=== PATIENT | female | born 1935 | race Caucasian/White ===

== ENCOUNTER 2016-07-25 11:43 | Inpatient (IN) ==
--- NOTE | 2016-07-24 21:43 | Discharge Summary ---
<Roxann Mills - Last Filed: 07/24/16 21:39> Date of Encounter: 07/24/16 - Discharge Diagnosis (1) Aseptic loosening of prosthetic knee Priority: Primary Status: Acute Qualifiers: Encounter type: initial encounter (2) Chronic pain Priority: Secondary Status: Chronic Comments: OARRS reviewed - Chronic pain medication - Takes Oxycodone 30mg QID - Last dose given 07/08/16 - Also takes Gabapentin 600mg TID. Allergies include Morphine and Fentanyl. Qualifiers: Chronic pain type: other chronic pain Qualified Code(s): G89.29 - Other chronic pain (3) History of [place] (myocardial infarction) Priority: Secondary Status: Chronic (4) Hyperlipidemia Priority: Secondary Status: Chronic Qualifiers: Hyperlipidemia type: unspecified Qualified Code(s): E78.5 - Hyperlipidemia , unspecified (5) CKD (chronic kidney disease) stage 3, GFR 30-59 ml/min Priority: Secondary Status: Chronic (6) Obesity Priority: Secondary Status: Chronic Qualifiers: Obesity type: unspecified obesity type Obesity severity: morbid Qualified Code(s): E66.01 - Morbid (severe) obesity due to excess calories - Discharge Medications Home Medications: Lisinopril [Prinivil] 20 mg PO DAILY #30 tablet 01/22/15 [Rx] Gabapentin 600 mg PO TID 06/09/16 [History] Omeprazole [PriLOSEC] 40 mg PO DAILY 06/09/16 [History] Aspirin Enteric Coated [Aspirin EC] 325 mg PO DAILY #21 tablet. 07/24/16 [Rx] Meloxicam [Mobic] 15 mg PO DAILY #30 tab 07/24/16 [Rx] OxyCODONE Immed Rel [Roxicodone 5 MG] 5 - 10 mg PO DAILY #21 tablet 07/24/16 [Rx ] Oxycodone HCl [Roxicodone 30 MG Immed Release] 30 mg PO Q6HR #120 07/24/16 [Rx] Carvedilol [Carvedilol] 6.25 mg PO DAILY 07/25/16 [History] Ergocalciferol (VITAMIN D2) [Vitamin D2] 50,000 unit PO SA 07/25/16 [History] Indapamide [Indapamide] 1.25 mg PO DAILY 07/25/16 [History] Oxycodone HCl [Roxicodone 30 MG Immed Release] 30 mg PO Q6HR 07/25/16 [History] Potassium Chloride 10 meq PO DAILY 07/25/16 [History] Temazepam [Temazepam] 30 mg PO HS 07/25/16 [History] Allergies/Adverse Reactions: Allergies fentanyl Adverse Reaction (Verified 07/25/16 13:49) Nausea morphine Adverse Reaction (Verified 07/25/16 13:49) Nausea Primary care physician: Haydee Kaminski CNP - Patient Status Disposition: Transfer Inpatient Rehab Fac Condition: Good - Discharge Instructions Follow Up With: Storm Jorgensen MD [Partnered Physician] - 08/23/16 9:50 am Roxann Mills, LUIZA [Physician Shot Hole Driller] - 08/05/16 9:30 am Harvey Craig EMPLOYMENT RECRUITER [Advanced Practice Nurse] - 08/05/16 10:15 am Haydee Kaminski CNP [Primary Care Provider] - 08/19/16 1:00 pm Sebastián Archuleta DO [Partnered Physician] - 08/24/16 1:15 pm - Hospital Course Hospital course: Ms. Russell Ramsay is a 81 year old female - Time Spent with Patient Total time spent providing and/or coordinating discharge services: <Storm Jorgensen - Last Filed: 07/28/16 08:24> Date of Encounter: 07/28/16 Time of Encounter: 08:23 - Discharge Diagnosis (1) Loosening of knee joint prosthesis Priority: Primary Status: Acute Qualifiers: Encounter type: subsequent encounter Qualified Code(s): T84.038D - Mechanical loosening of other internal prosthetic joint, subsequent encounter; Z96.659 - Presence of unspecified artificial knee joint (2) CKD (chronic kidney disease) stage 3, GFR 30-59 ml/min Priority: Secondary Status: Chronic (3) History of [place] (myocardial infarction) Priority: Secondary Status: Chronic (4) Obesity Priority: Secondary Status: Chronic Qualifiers: Obesity type: unspecified obesity type Obesity severity: morbid Qualified Code(s): E66.01 - Morbid (severe) obesity due to excess calories (5) Breast cancer Priority: Secondary Status: Chronic Qualifiers: Breast location: unspecified site of breast Patient sex: female Laterality: unspecified laterality Qualified Code(s): C50.919 - Malignant neoplasm of unspecified site of unspecified female breast (6) Hyperlipidemia Priority: Secondary Status: Chronic Qualifiers: Hyperlipidemia type: unspecified Qualified Code(s): E78.5 - Hyperlipidemia , unspecified (7) Acute blood loss anemia Priority: Primary Status: Acute Primary care physician: Haydee Kaminski CNP - Patient Status Functional capacity at discharge: uses cane/walker Overall status at discharge: patient is progressing back to baseline - Hospital Course Hospital course: Ms. Russell Ramsay is a 81 year old female The patient had an uneventful postoperative course. They received antibiotics and physical therapy and were discharged in stable condition. There will follow -up in the office in 2 weeks. Patient received 2 units packed red blood cells for acute blood loss anemia aspirin for the DVT prophylaxis - Time Spent with Patient Total time spent providing and/or coordinating discharge services:
--- NOTE | 2016-07-25 12:12 | History & Physical Report ---
Date of Encounter: 07/25/16 Time of Encounter: 12:12 24 Hour HP Update - Instructions Instructions: If the History and Physical is less than 30 days old and was completed prior to A.M. admission and or procedure and has NOT been updated on calendar day of procedure please complete this update prior to performing procedure. - Update Patient reports changes in Medical Condition: No Changes in assessment/condition: No Changes in Medication: No Preop tests/diagnostics Reviewed: Yes Surgery Remains Indicated: Yes Consent for Planned Operative Procedure(s) Verified: Yes - Pre-Operative Checklist Preoperative Checklist Indicated: No Prophylactic Antibiotic Ordered: Yes Is VTE Prophylaxis Indicated?: Yes
[2016-07-25] MEDS ORDERED: CeFAZolin Pre 2,000 MG/100 ML 2,000 MG/100 ML BAG IVPB ONE (12:24)
[2016-07-25] MEDS ORDERED: Ringers Solution, Lactated 1,000 ML IVC SCH ×2 (12:30→17:51)
[2016-07-25] MEDS ORDERED: Famotidine 20 MG/2 ML VIAL IVP ONE (12:42)
[2016-07-25] MEDS ORDERED: *HR* Labetalol 100 MG/20 ML MDV IVP PRN (12:42)
[2016-07-25] MEDS ORDERED: *HR* Promethazine 25 MG/ML VIAL IVP PRN (12:42)
--- NOTE | 2016-07-25 12:48 | Anesthesia Evaluation PreOp ---
Date of Encounter: 07/25/16 Time of Encounter: 12:46 - Past History Planned Operation: Revision R-total knee Cardiac History: CHF (exacerbation in 2014), HTN (maintained on Lisinopril, Carvedilol, Indapamide), Other (ECHO 06/09/16 - LVEF 65%, NO SWMA) Pulmonary History: Denies Any Significant HX HEAVY DUTY MECHANIC History: Denies Any Significant HX, Other (Chronic post-op knee pain maintained on Gabapentin) Other Medical History: Renal (Stage 3 CRI/GFR = 30 [ sees Dr. Warren]), GERD (maintained on Omeprazole), Other (Hx of Breast Ca) Anesthesia History: No Prior Anesthetic Complications, Past Anesthesia (B- TKRs , L-mastectomy, Hyster, Knee scope,) Alcohol Use: none Drug use: none Medications and Allergies Temazepam [Restoril] 30 mg PO HS 01/19/15 [History] Atorvastatin [Lipitor] 40 mg PO HS #30 tablet 01/22/15 [Rx] Lisinopril [Prinivil] 20 mg PO DAILY #30 tablet 01/22/15 [Rx] Gabapentin 600 mg PO TID 06/09/16 [History] Omeprazole [PriLOSEC] 40 mg PO DAILY 06/09/16 [History] Potassium Chloride [K-Tab ER] 10 meq PO DAILY 06/09/16 [History] Aspirin Enteric Coated [Aspirin EC] 325 mg PO DAILY #21 tablet. 07/24/16 [Rx] Meloxicam [Mobic] 15 mg PO DAILY #30 tab 07/24/16 [Rx] OxyCODONE Immed Rel [Roxicodone 5 MG] 5 - 10 mg PO DAILY #21 tablet 07/24/16 [Rx ] Oxycodone HCl [Roxicodone 30 MG Immed Release] 30 mg PO Q6HR #120 07/24/16 [Rx] Allergies No Known Allergies Allergy (Verified 06/09/16 10:08) - Meds/Allergy Pre-op Review Medications Reviewed: Yes Allergies Reviewed: Yes Beta Blockers on Current Med List: Yes (Carvedilol) Anesthesia Results - Labs Laboratory Tests 06/10/16 07/11/16 07/11/16 04:37 13:42 13:42 WBC 9.3 Hgb 12.2 Hct 37.6 Plt Count 273 PT 11.1 INR 1.0 APTT 29.9 Sodium Potassium Chloride Carbon Dioxide BUN Creatinine Est GFR (Non-Af Amer) Glucose 184 H 07/11/16 13:42 WBC Hgb Hct Plt Count PT INR APTT Sodium 139 Potassium 4.7 H Chloride 107 Carbon Dioxide 19 BUN 20 Creatinine 1.67 H Est GFR (Non-Af Amer) 30 L Glucose - Imaging EKG: image reviewed Anesthesia Exam O2 Sat Height 1.6 m Height 1.6 m Height 1.6 m Weight 83.007 kg Weight 83.007 kg Weight 83.007 kg O2 Sat by Pulse Oximetry 97 O2 Sat by Pulse Oximetry 97 Vital Signs Temp Pulse Resp BP Pulse Ox 98.6 F 63 18 127/61 97 07/25/16 12:08 07/25/16 12:08 07/25/16 12:08 07/25/16 12:08 07/25/16 12:08 Height: 5'3" Weight: 183# BMi = 32.4 NPO (# of Hours): MNoc - HEENT Pupil (Motor): Pupils equal, EOMI Mallampati: II - HEAVY DUTY MECHANIC LOC: Oriented HEAVY DUTY MECHANIC Motor: Normal RUE, Normal LUE, Normal RLE, Normal LLE, Normal Face HEAVY DUTY MECHANIC Sensory: Normal: RUE, LUE, RLE, LLE, Face - Cardiac Rhythm: Regular Murmur: None - Pulmonary Breath Sounds: bilateral Clear Respiratory Effort: Symmetrical Anesthesia Assess/Plan ASA Score: 3 (Htn, Chol, Obesity, Chronic Pain) Modified [place] Scale for Level of Consciousness: Cooperative, oriented, and tranquil Anesthetic Plan: General Monitoring Plan: Standard Monitors Recovery Plan: PACU Anes Supervising Prov Stmt: Pt seen/evaluated, R&B discussed, questions answered and consent obtained. Laith Hidalgo MD
[2016-07-25] MEDS ORDERED: *HR* Propofol 200 MG/20 ML VIAL IVP ONE (12:53)
[2016-07-25] MEDS ORDERED: *HR* FentaNYL (PF) 100 MCG/2 ML VIAL ONE (12:53)
[2016-07-25] MEDS ORDERED: Lidocaine -MPF 2% 2 ML VIAL ONE (12:54)
[2016-07-25] MEDS ORDERED: *HR* Midazolam HCl 2 MG/2 ML VIAL ONE (12:54)
[2016-07-25] MEDS ORDERED: Bupivacaine/Clonidine Syringe 1 EACH SYRINGE ONE (13:15)
[2016-07-25] MEDS ORDERED: ROPIVACAINE HCL/PF 0.5% 30 ML VIAL ONE (13:16)
--- NOTE | 2016-07-25 14:04 | Anesthesia Procedures ---
Date of Encounter: 07/25/16 Time of Encounter: 14:02 Procedures: Anesthesia - Nerve Block Procedure Date: 07/25/16 Time: 14:02 Allergies/Adv Reactions: Allergies fentanyl Adverse Reaction (Verified 07/25/16 13:49) Nausea morphine Adverse Reaction (Verified 07/25/16 13:49) Nausea Pre-op Diagnosis: oa right knee Surgical Procedure: right tka Checklist: Correct Patient Identifier, Correct procedure, History checked Correct side: Right Blood Thinner: No Monitor Applied: EKG, BP, Pulse Oximetry Supplemental Oxygen via Nasal Cannula (L/min): 2 Sedation: Versed (mg): 2 Indication: Post Op Analgesia Pre-op Neuro Deficits: No Block Type: Femoral, Other (iPACK) Catheter placed: No Sterile Technique: Yes Ultrasound used: Yes Anatomy identified: Yes Visual spread of Local: Yes Neuro Stimulation: Yes (femoral) Nerve Stimulator Range: 0.2 - 0.4 mA Blood on Needle Aspiration: No Smooth Injection of Local: Yes Pain with Injection of Local: No Prep: Chlorhexadine Needle: 22 x 50 mm Stimuplex, 21 x 100 mm Stimuplex Local: 0.25% Bupivicaine w/Clonidine 20 mcg/cc (iPACK 20cc), Ropivacaine (0.5% 30cc ropivicaine) Volume (cc): 50 Number of Attempts: 1 Complications: None/effective block Vitals: Vital Signs/O2 Sat, Most Current Temp Pulse Resp BP Pulse Ox 98.8 F 69 1 149/61 100 07/25/16 13:35 07/25/16 14:00 07/25/16 14:00 07/25/16 14:00 07/25/16 14:00 Comments: peripheral nerve block with ultrasound for postoperative pain relief per dr ascencio request
[2016-07-25] MEDS ORDERED: *HR* HYDROmorphone 2 MG/ML SYRINGE ONE (14:42)
[2016-07-25] MEDS ORDERED: Ondansetron 4 MG/2 ML VIAL ONE (14:44)
[2016-07-25] MEDS ORDERED: Dexamethasone 4 MG/ML VIAL ONE (14:44)
--- NOTE | 2016-07-25 15:24 | Orthopedic Operative Note ---
Date of procedure: 07/25/16 Pre-op diagnosis: Aseptic loosening right total knee Post-op diagnosis: same Procedure: Procedure: Right revision total knee Estimated blood loss: 500 mL Hardware: Biomet SS K 60 right femur 18 x 80 stem, 63 stem tibia, 18 x 40 stem. 14 constrained Melissa, 34 patella Exam Under anesthesia: Full extension and flexion to 90 degrees significant varus valgus instability Procedural Notes: Unstable total knee, aseptic loosening tibia and femur. Operative procedure: The patient was brought to the operating room and placed on the operating room table. After general anesthesia was administered the operative knee was examined. Findings were noted in the exam under anesthesia. The operative extremity was prepped and draped in sterile surgical fashion. The patient received IV antibiotics prior to skin incision. A standard midline incision was made centered over the patella through the old incision. The incision was made through the skin and subcutaneous tissue. A medial parapatellar tendon approach was performed. Care was taken to preserve tissue along the medial aspect of the patella. And to protect the patella tendon. The deep MCL was released off the medial tibia. The infra patella fat pad was excised. Fluid was encountered this was normal joint fluid, Cultures were obtained and gram . The knee was brought into flexion the poly-was removed. The interface between the patient's femoral component and distal femur were disrupted with a osteotome and oscillating saw. Femoral component was removed removed without significant bone loss the femoral component was loose. Attention was then turned to the tibial component. The same technique was used to remove the tibial component by disrupting the interface between the patient's tibial component and the patients proximal tibia. The tibial component was loose, was removed without significant bone loss. The tibia was sized to a 63 it was reamed up to a 18 x 40. Trial had good fit and fixation. The femur was sized to a 60, was reamed up to a 14 x 80. The finishing guide was seated and the box cut was made. The trial had good fit and fixation. Both trial components were seated and the 14 constrained Melissa was seated and secured. The knee had full flexion and full extension with no instability. The patella was everted, the patella was transected below the patella component. It was sized to a 34 the guide was seated the lug holes are drilled. Patella had excellent patella tracking. The trial components were removed. The knee sat for 2 minutes with a Betadine saline solution. It was irrigated out with 2 L of pulse irrigation. The components were assembled on the back table, the tibia cemented first followed by the femur. The 14 constrained liner was seated and secure. The knee was brought to full extension while the cement hardened. The patella was cemented and held in place with patellar holding clamp. After the cement hardened the knee was irrigated out again. The extensor mechanism was closed with a running #2 Fiberwire suture and a running #2 PDS suture. The deep tissue was irrigated and closed deep with #1 PDS suture superficially with 0 PDS suture. The skin was closed with skin evelyn. The patient was placed in a sterile dressing and postoperative brace. They were extubated and transferred to recovery room in stable condition. Anesthesia: YENNIFERA Surgeon: Storm Jorgensen Condition: stable Disposition: PACU
[2016-07-25] MEDS: *HR* HYDROmorphone (PF) 1 MG/ML SYRINGE IVP PRN ×6 (16:19→20:49)
[2016-07-25 16:45] LABS: Hematocrit 30.4 % (35.3-44.9); Hemoglobin 9.8 g/dL (11.5-15.4)
--- NOTE | 2016-07-25 17:04 | Anesthesia Evaluation Post Op ---
Date of Encounter: 07/25/16 Time of Encounter: 17:00 - Vital Signs Vital Signs: Vital Signs - Last 8 Hours Temp Pulse Resp BP Pulse Ox 07/25/16 16:55 97.2 F L 58 16 169/65 100 07/25/16 16:45 56 14 161/63 100 07/25/16 16:35 63 16 163/80 100 07/25/16 16:25 98.4 F 69 16 123/80 100 07/25/16 16:15 67 16 167/77 99 07/25/16 16:05 72 16 161/65 96 07/25/16 15:55 98.6 F 83 16 159/77 93 L 07/25/16 14:00 69 1 149/61 100 07/25/16 13:46 63 10 149/71 100 07/25/16 13:35 98.8 F 65 12 149/71 100 07/25/16 12:33 98.6 F 63 18 127/61 97 07/25/16 12:08 98.6 F 63 18 127/61 97 Intake and Output 07/25/16 07/25/16 07/25/16 07:59 15:59 23:59 Output Total 500 / 500 Balance -500 / -500 Output: Estimated Blood Loss 500 / 500 Other: Weight 83.007 kg Patient Weight 07/25/16 23:59 Weight 83.007 kg - Lungs Lungs: Clear Ascult./Percussion - Airway Airway: Non-obstructed - Cardiovascular Regular Rate, Baseline Rhythm - Mental Status Mental Status: Alert & Oriented, Answers Appropriately - Pain Pain Scale: 0 Pain Scale used: Numeric (1 - 10) - Nausea Vomiting Nausea Vomiting: Not Present - Hydration Hydration: Tolerates oral liquids - Discharge PostOp Status: Transfer Patient to floor
[2016-07-25] MEDS ORDERED: MOM Conc 10 ML UD.LIQ PO PRN (17:51)
[2016-07-25] MEDS ORDERED: Acetaminophen 325 MG TABLET PO PRN (17:51)
[2016-07-25] MEDS ORDERED: Ondansetron 4 MG/2 ML VIAL IVP PRN (17:51)
[2016-07-25] MEDS ORDERED: Sennosides 8.6 MG TABLET PO PRN (17:51)
[2016-07-25] MEDS ORDERED: Naloxone 0.4 MG/ML INJ IVP PRN (17:51)
[2016-07-25] MEDS ORDERED: Temazepam 15 MG CAPSULE PO PRN (17:51)
[2016-07-25] MEDS ORDERED: ceFAZolin 2,000 MG in D5% in Water 100 ML IVPB SCH (17:51)
[2016-07-25] MEDS ORDERED: *HR* Enoxaparin 30 MG/0.3 ML SYRINGE SQ SCH ×3 (18:00→18:15)
[2016-07-25] MEDS: Gabapentin 300 MG CAPSULE PO SCH ×2 (18:23→20:49)
[2016-07-25] MEDS: *HR* OxyCODONE Immed Rel 15 MG TABLET PO SCH (18:25)
[2016-07-25] MEDS: ceFAZolin 2,000 MG in D5% in Water 100 ML IVPB SCH (21:56)
[2016-07-25] MEDS: Temazepam 15 MG CAPSULE PO SCH (21:56)
[2016-07-26] MEDS: *HR* OxyCODONE Immed Rel 15 MG TABLET PO SCH ×5 (00:49→20:56)
[2016-07-26] MEDS: *HR* HYDROmorphone (PF) 1 MG/ML SYRINGE IVP PRN ×4 (03:52→22:22)
--- NOTE | 2016-07-26 06:20 | Orthopedics Progress Note ---
Date of Encounter: 07/26/16 Time of Encounter: 06:19 - Assessment and Plan (1) Loosening of knee joint prosthesis Current Visit: Yes Status: Acute Qualifiers: Encounter type: subsequent encounter Qualified Code(s): T84.038D - Mechanical loosening of other internal prosthetic joint, subsequent encounter; Z96.659 - Presence of unspecified artificial knee joint (2) CKD (chronic kidney disease) stage 3, GFR 30-59 ml/min Current Visit: Yes Status: Chronic (3) History of [place] (myocardial infarction) Current Visit: Yes Status: Chronic (4) Obesity Current Visit: Yes Status: Chronic Qualifiers: Obesity type: unspecified obesity type Obesity severity: morbid Qualified Code(s): E66.01 - Morbid (severe) obesity due to excess calories (5) Breast cancer Current Visit: No Status: Chronic Qualifiers: Breast location: unspecified site of breast Patient sex: female Laterality: unspecified laterality Qualified Code(s): C50.919 - Malignant neoplasm of unspecified site of unspecified female breast (6) Hyperlipidemia Current Visit: No Status: Chronic Qualifiers: Hyperlipidemia type: unspecified Qualified Code(s): E78.5 - Hyperlipidemia , unspecified Subjective Interval history: Patient was seen this morning doing well without complaints. Afebrile vital signs stable. Operative extremity: Neurovascularly intact Dressing clean dry and intact Calves nontender Assessment and plan: Continue with postoperative care HCT 30 Objective Vital signs: Vital Signs Temp Pulse Resp BP Pulse Ox 07/26/16 04:20 97.6 F 72 14 149/73 99 07/26/16 00:40 98 F 68 16 166/85 95 07/25/16 20:42 98.1 F 69 15 123/59 97 07/25/16 19:34 97.7 F 63 14 104/65 96 07/25/16 18:32 97.5 F L 61 16 143/67 95 07/25/16 17:59 97.9 F 62 12 143/83 95 07/25/16 17:33 97.7 F 53 12 147/74 97 07/25/16 17:05 97.2 F L 58 14 160/63 100 07/25/16 16:55 97.2 F L 58 16 169/65 100 07/25/16 16:45 56 14 161/63 100 07/25/16 16:35 63 16 163/80 100 07/25/16 16:25 98.4 F 69 16 123/80 100 07/25/16 16:15 67 16 167/77 99 07/25/16 16:05 72 16 161/65 96 07/25/16 15:55 98.6 F 83 16 159/77 93 L 07/25/16 14:00 69 1 149/61 100 07/25/16 13:46 63 10 149/71 100 07/25/16 13:35 98.8 F 65 12 149/71 100 07/25/16 12:33 98.6 F 63 18 127/61 97 07/25/16 12:08 98.6 F 63 18 127/61 97 Intake and Output 07/25/16 07/25/16 07/26/16 15:59 23:59 07:59 Intake Total 300 / 300 Output Total 500 / 500 1500 / 1500 250 / 250 Balance -500 / -500 -1200 / -1200 -250 / -250 Intake: IV Fluids 100 / 100 Ancef 2,000 MG In 100 / 100 Dextrose 5% 100 ML @ 200 mls/hr IVPB Q8H HARVEY Rx#: [id number] Oral 200 / 200 Output: Urine 1500 / 1500 250 / 250 Estimated Blood Loss 500 / 500 Other: # Voids 1 1 Weight 83.007 kg - Labs CBC & BMP: 07/25/16 16:13 Labs: Abnormal lab results Hgb 9.8 g/dL (11.5-15.4) L 07/25/16 16:13 Hct 30.4 % (35.3-44.9) L 07/25/16 16:13 - VTE Documentation of Mechanical Device: Venous foot pump, device Consult Discharge Plan - Plan Referrals: Haydee Kaminski, MOTORCYCLE RIDING INSTRUCTOR [Primary Care Provider] -
[2016-07-26] MEDS: ceFAZolin 2,000 MG in D5% in Water 100 ML IVPB SCH (06:43)
[2016-07-26] MEDS ORDERED: *HR* Enoxaparin 30 MG/0.3 ML SYRINGE SQ SCH (07:00)
[2016-07-26 07:05] LABS: Hematocrit 26.8 % (35.3-44.9); Hemoglobin 8.9 g/dL (11.5-15.4)
[2016-07-26 07:17] LABS: BUN/Creatinine Ratio 16 (6-26); Blood Urea Nitrogen 16 mg/dL (7-20); Calcium 8.8 mg/dL (8.6-10.8); Carbon Dioxide 20 mEq/L (19-29); Chloride 109 mEq/L (98-109); Glucose 105 mg/dL (70-99); Osmolality,Calculated 290 (280-300); Potassium 4.8 mEq/L (3.5-4.5); Sodium 139 mEq/L (136-145); eGFR For African Americans > 60 (> 60); eGFR For Non-African Americans 52 (> 60)
[2016-07-26] MEDS: Lisinopril 20 MG TABLET PO SCH (09:55)
[2016-07-26] MEDS: Gabapentin 300 MG CAPSULE PO SCH ×3 (09:55→20:55)
[2016-07-26] MEDS: *HR* Enoxaparin 30 MG/0.3 ML SYRINGE SQ SCH (20:56)
[2016-07-26] MEDS: Temazepam 15 MG CAPSULE PO SCH (23:24)
[2016-07-27] MEDS: *HR* OxyCODONE Immed Rel 15 MG TABLET PO SCH ×6 (00:36→22:20)
[2016-07-27] MEDS: *HR* HYDROmorphone (PF) 1 MG/ML SYRINGE IVP PRN ×5 (03:26→18:01)
[2016-07-27 06:32] LABS: Hematocrit 30.2 % (35.3-44.9)
--- NOTE | 2016-07-27 06:33 | Orthopedics Progress Note ---
Date of Encounter: 07/27/16 Time of Encounter: 06:33 - Assessment and Plan (1) Loosening of knee joint prosthesis Current Visit: Yes Status: Acute Qualifiers: Encounter type: subsequent encounter Qualified Code(s): T84.038D - Mechanical loosening of other internal prosthetic joint, subsequent encounter; Z96.659 - Presence of unspecified artificial knee joint (2) CKD (chronic kidney disease) stage 3, GFR 30-59 ml/min Current Visit: Yes Status: Chronic (3) History of [place] (myocardial infarction) Current Visit: Yes Status: Chronic (4) Obesity Current Visit: Yes Status: Chronic Qualifiers: Obesity type: unspecified obesity type Obesity severity: morbid Qualified Code(s): E66.01 - Morbid (severe) obesity due to excess calories (5) Breast cancer Current Visit: No Status: Chronic Qualifiers: Breast location: unspecified site of breast Patient sex: female Laterality: unspecified laterality Qualified Code(s): C50.919 - Malignant neoplasm of unspecified site of unspecified female breast (6) Hyperlipidemia Current Visit: No Status: Chronic Qualifiers: Hyperlipidemia type: unspecified Qualified Code(s): E78.5 - Hyperlipidemia , unspecified Subjective Interval history: Patient was seen this morning doing well without complaints. Afebrile vital signs stable. Operative extremity: Neurovascularly intact Dressing clean dry and intact Calves nontender Assessment and plan: Continue with postoperative care HCT 26.8 Objective Vital signs: Vital Signs Temp Pulse Resp BP Pulse Ox 07/27/16 04:49 99 F 89 16 167/89 94 L 07/27/16 01:10 100.4 F H 88 15 184/76 96 07/26/16 22:21 93 179/84 07/26/16 20:13 98.9 F 82 15 190/70 92 L 07/26/16 15:28 99.4 F 88 16 194/73 93 L 07/26/16 10:28 99.2 F 91 16 147/74 93 L 07/26/16 06:53 99.1 F 73 16 146/75 98 Intake and Output 07/26/16 07/26/16 07/27/16 15:59 23:59 07:59 Intake Total 360 / 360 Output Total 275 / 275 475 / 475 Balance 360 / 360 -275 / -275 -475 / -475 Intake: Oral 360 / 360 Output: Urine 275 / 275 475 / 475 Other: Meal Breakfast Percent of Meal Consumed 90% Stool Size Large # Voids 1 - Labs CBC & BMP: 07/26/16 06:39 07/26/16 06:39 Labs: Abnormal lab results Hgb 8.9 g/dL (11.5-15.4) L 07/26/16 06:39 Hct 26.8 % (35.3-44.9) L 07/26/16 06:39 Potassium 4.8 mEq/L (3.5-4.5) H 07/26/16 06:39 Est GFR (Non-Af Amer) 52 (> 60) L 07/26/16 06:39 Glucose 105 mg/dL (70-99) H 07/26/16 06:39 - VTE Documentation of Mechanical Device: Venous foot pump, device Consult Discharge Plan - Plan Referrals: Haydee Kaminski, DISTRIBUTOR ADVERTISING MATERIAL [Primary Care Provider] -
[2016-07-27 06:44] LABS: Calcium 9.4 mg/dL (8.6-10.8)
[2016-07-27 06:46] LABS: Potassium 3.5 mEq/L (3.5-4.5)
[2016-07-27] MEDS: Gabapentin 300 MG CAPSULE PO SCH ×3 (07:49→22:20)
[2016-07-27] MEDS: Lisinopril 20 MG TABLET PO SCH (07:50)
[2016-07-27] MEDS: Temazepam 15 MG CAPSULE PO SCH (22:20)
[2016-07-27] MEDS: *HR* Enoxaparin 30 MG/0.3 ML SYRINGE SQ SCH (22:20)
[2016-07-28] MEDS: *HR* OxyCODONE Immed Rel 15 MG TABLET PO SCH ×5 (00:26→16:06)
[2016-07-28] MEDS: *HR* HYDROmorphone (PF) 1 MG/ML SYRINGE IVP PRN ×2 (00:29→06:12)
[2016-07-28] MEDS: Gabapentin 300 MG CAPSULE PO SCH ×2 (08:12→16:06)
[2016-07-28] MEDS: Lisinopril 20 MG TABLET PO SCH (08:14)
--- NOTE | 2016-07-28 08:25 | Orthopedics Progress Note ---
Date of Encounter: 07/28/16 Time of Encounter: 08:25 - Assessment and Plan (1) Loosening of knee joint prosthesis Current Visit: Yes Status: Acute Qualifiers: Encounter type: subsequent encounter Qualified Code(s): T84.038D - Mechanical loosening of other internal prosthetic joint, subsequent encounter; Z96.659 - Presence of unspecified artificial knee joint (2) CKD (chronic kidney disease) stage 3, GFR 30-59 ml/min Current Visit: Yes Status: Chronic (3) History of [place] (myocardial infarction) Current Visit: Yes Status: Chronic (4) Obesity Current Visit: Yes Status: Chronic Qualifiers: Obesity type: unspecified obesity type Obesity severity: morbid Qualified Code(s): E66.01 - Morbid (severe) obesity due to excess calories (5) Breast cancer Current Visit: No Status: Chronic Qualifiers: Breast location: unspecified site of breast Patient sex: female Laterality: unspecified laterality Qualified Code(s): C50.919 - Malignant neoplasm of unspecified site of unspecified female breast (6) Hyperlipidemia Current Visit: No Status: Chronic Qualifiers: Hyperlipidemia type: unspecified Qualified Code(s): E78.5 - Hyperlipidemia , unspecified (7) Acute blood loss anemia Current Visit: Yes Status: Acute Subjective Interval history: Patient was seen this morning doing well without complaints. Afebrile vital signs stable. Operative extremity: Neurovascularly intact Dressing clean dry and intact Calves nontender Assessment and plan: Continue with postoperative care discharged today Objective Vital signs: Vital Signs Temp Pulse Resp BP Pulse Ox 07/28/16 06:36 98.5 F 91 16 152/76 96 07/28/16 05:13 98.7 F 88 16 159/79 95 07/28/16 00:44 99.0 F 92 16 134/71 94 L 07/27/16 21:01 98.9 F 76 16 180/60 100 07/27/16 14:49 98.7 F 90 16 143/86 95 07/27/16 10:09 98.4 F 96 18 154/78 96 Intake and Output 07/27/16 07/28/16 07/28/16 23:59 07:59 15:59 Other: # Voids 1 - Labs CBC & BMP: 07/27/16 06:17 07/27/16 06:17 Labs: Abnormal lab results Hgb 10.0 g/dL (11.5-15.4) L 07/27/16 06:17 Hct 30.2 % (35.3-44.9) L 07/27/16 06:17 Est GFR ( Amer) 57 (> 60) L 07/27/16 06:17 Est GFR (Non-Af Amer) 47 (> 60) L 07/27/16 06:17 Glucose 142 mg/dL (70-99) H 07/27/16 06:17 - VTE Documentation of Mechanical Device: Venous foot pump, device Consult Discharge Plan - Plan Referrals: Storm Jorgensen MD [Partnered Physician] - 08/23/16 9:50 am Roxann Mills, PAC [Physician Internal Auditor] - 08/05/16 9:30 am Harvey Craig, SODA MAKER [Advanced Practice Nurse] - 08/05/16 10:15 am Haydee Kaminski SODA MAKER [Primary Care Provider] - 08/19/16 1:00 pm Sebastián Archuleta DO [Partnered Physician] - 08/24/16 1:15 pm
[2016-07-28 09:50] LABS: Hematocrit 27.4 % (35.3-44.9); Hemoglobin 8.8 g/dL (11.5-15.4)
[2016-07-28 09:58] LABS: Calcium 8.9 mg/dL (8.6-10.8); Potassium 3.3 mEq/L (3.5-4.5)
[2016-07-28] MEDS ORDERED: 0.9 % Sodium Chloride 500 ML IVC ONE (11:37)
[2016-07-28 16:03] VITALS: BP 144/83
== END 2016-07-28 18:00 | DRG 467 ==
LOC: SAMDAY 11:43 → 3NENU 17:22
PROVIDERS: ADMIT Orthopaedic Surgery; ATTEND Orthopaedic Surgery

== ENCOUNTER 2018-04-25 08:13 | Inpatient (IN) ==
[2018-04-25] MEDS ORDERED: CeFAZolin Syr 2,000MG/20 ML 2,000 MG/20 ML SYRINGE IVPB ONE (08:34)
[2018-04-25] MEDS ORDERED: Ringers Solution, Lactated 1,000 ML IVC SCH ×2 (08:45→13:46)
[2018-04-25] MEDS ORDERED: *HR* Propofol 200 MG/20 ML VIAL IVP ONE ×2 (08:52→10:44)
[2018-04-25] MEDS ORDERED: *HR* FentaNYL (PF) 100 MCG/2 ML VIAL ONE (08:52)
[2018-04-25] MEDS ORDERED: Lidocaine -MPF 2% 2 ML VIAL ONE (08:52)
[2018-04-25] MEDS ORDERED: Ondansetron 4 MG/2 ML VIAL ONE (08:52)
[2018-04-25] MEDS ORDERED: Dexamethasone 4 MG/ML VIAL ONE (08:52)
--- NOTE | 2018-04-25 08:56 | Anesthesia Evaluation PreOp ---
Date of Encounter: 04/25/18 Time of Encounter: 08:50 - Past History Planned Operation: Revision Right total knee arthroplasty Cardiac History: HTN, Other (hx of takotsubo cardiomyopathy which is now resolved, EF is now 65%) Pulmonary History: Denies Any Significant HX COKEMAN History: Other (lumbar stenosis and disc dz at L3-4, and L4-5) Other Medical History: Renal (CKD stage III), GERD, Other (breast ca s/p L mastectomy) Anesthesia History: No Prior Anesthetic Complications, Past Anesthesia (R knee replacement and revision, L TKR, L mastectomy, hysterectomy) Alcohol Use: none Drug use: none Medications and Allergies Aspirin [Adult Aspirin] 81 mg PO DAILY 04/25/18 [History] Atorvastatin [Lipitor] 40 mg PO HS 04/25/18 [History] Carvedilol 12.5 mg PO DAILY 04/25/18 [History] Diclofenac Sodium [Voltaren] 2 gm TP BID 04/25/18 [History] Lisinopril [Zestril] 20 mg PO DAILY 04/25/18 [History] Omeprazole [PriLOSEC] 20 mg PO DAILY 04/25/18 [History] OxyCODONE Immed Rel [Roxicodone 15 MG] 15 mg PO Q6HR 04/25/18 [History] Pregabalin [Lyrica] 100 mg PO Q48H 04/25/18 [History] Allergy/AdvReac Type Severity Reaction Status Date / Time fentanyl AdvReac Nausea Verified 04/25/18 09:14 morphine AdvReac Nausea Verified 04/25/18 09:14 - Meds/Allergy Pre-op Review Medications Reviewed: Yes Allergies Reviewed: Yes Beta Blockers on Current Med List: Yes If Beta Blockers taken, Date/Time (Last Dose taken): 6am Anesthesia Results - Labs Laboratory Tests 04/24/18 04/24/18 04/24/18 15:52 15:52 15:52 WBC 8.3 Hgb 10.9 L Hct 34.9 L Plt Count 378 PT 12.2 H INR 1.1 APTT 29.9 Sodium 140 Potassium 4.3 Chloride 104 Carbon Dioxide 26 BUN 25 H Creatinine 1.15 - Imaging EKG: pending Additional studies: 05/30/18 Impressions: LVEF 65%. Normal LV chamber size, wall thickness and function. Mild left ventricular diastolic dysfunction. Normal right ventricular structure and function. Borderline mild pulmonary hypertension. Estimated RVSP is 35 mmHg. No significant valvular dysfunction. Compared to prior reports, LVEF has normalized. Anesthesia Exam O2 Sat Height 1.63 m Weight 86.183 kg O2 Sat by Pulse Oximetry 98 Vital Signs Temp Pulse Resp BP Pulse Ox 97.9 F 65 18 182/77 98 04/25/18 08:48 04/25/18 08:48 04/25/18 08:48 04/25/18 08:48 04/25/18 08:48 Weight: 86kg NPO (# of Hours): >8 - HEENT Pupil (Motor): Pupils equal, EOMI Mallampati: III Teeth: Edentulous Oral Opening: Greater than 3 - COKEMAN LOC: Oriented COKEMAN Motor: Normal RUE, Normal LUE, Normal RLE, Normal LLE, Normal Face COKEMAN Sensory: Normal: RUE, LUE, RLE, LLE, Face - Cardiac Rhythm: Regular - Pulmonary Breath Sounds: bilateral Clear Respiratory Effort: Symmetrical Anesthesia Assess/Plan ASA Score: 3 Level of consciousness: Cooperative Anesthetic Plan: General, Regional Nerve Block Regional Nerve Block Plan: Adductor canal (R), IPACK (R) Reason for No Neuroaxial/Regional Block: Other (hx of back issue with lumbar stenosis at L3-4 and L4-5) Monitoring Plan: Standard Monitors Recovery Plan: PACU
[2018-04-25] MEDS ORDERED: *HR* HYDROmorphone (PF) 1 MG/ML SYRINGE IVP PRN (08:58)
[2018-04-25] MEDS ORDERED: *HR* Promethazine 25 MG/ML VIAL IVP PRN (08:58)
[2018-04-25] MEDS ORDERED: *HR* OxyCODONE/APAP 5/325 TABLET PO PRN (08:58)
[2018-04-25] MEDS ORDERED: *HR* Labetalol 20 MG/4 ML SYRINGE IVP PRN (08:58)
--- NOTE | 2018-04-25 09:16 | History & Physical Report ---
Date of Encounter: 04/25/18 Time of Encounter: 09:16 24 Hour HP Update - Instructions Instructions: If the History and Physical is less than 30 days old and was completed prior to A.M. admission and or procedure and has NOT been updated on calendar day of procedure please complete this update prior to performing procedure. - Update Patient reports changes in Medical Condition: No Changes in examination, assessment, or condition: No Changes in Medication: No Preop tests/diagnostics Reviewed: Yes Surgery Remains Indicated: Yes Consent for Planned Operative Procedure(s) Verified: Yes - Pre-Operative Checklist Preoperative Checklist Indicated: No Prophylactic Antibiotic Ordered: Yes Is VTE Prophylaxis Indicated?: Yes
[2018-04-25] MEDS ORDERED: Bupivacaine/Clonidine Syringe 1 EACH SYRINGE ONE (09:26)
[2018-04-25] MEDS ORDERED: Acetaminophen IV 1,000 MG/100 ML INFUS..BTL ONE (09:28)
[2018-04-25] MEDS ORDERED: *HR* HYDROmorphone (PF) 1 MG/ML SYRINGE ONE (09:49)
[2018-04-25] MEDS ORDERED: Ethanol\\Acetic Acid\\Na Ace\\Ben 1,000 ML IRRIG.SOLN IR ONE (10:08)
--- NOTE | 2018-04-25 10:22 | Anesthesia Procedures ---
Date of Encounter: 04/25/18 Time of Encounter: 10:05 Procedures: Anesthesia - Nerve Block Procedure Date: 04/25/18 Time: 10:05 Allergies/Adv Reactions: Fentanyl, morphine Pre-op Diagnosis: Right knee pain Surgical Procedure: Right total knee arthroplasty Checklist: Correct Patient Identifier, Correct procedure, History checked Correct side: Right Blood Thinner: No Monitor Applied: EKG, BP, Pulse Oximetry Supplemental Oxygen via Nasal Cannula (L/min): 2 Indication: Post Op Analgesia Pre-op Neuro Deficits: No Block Type: Other (adductor canal/IPACK) Catheter placed: No Sterile Technique: Yes Ultrasound used: Yes Anatomy identified: Yes Visual spread of Local: Yes Neuro Stimulation: No Blood on Needle Aspiration: No Smooth Injection of Local: Yes Pain with Injection of Local: No Prep: Chlorhexadine Needle: 21 x 100 mm Stimuplex Local: 0.25% Bupivicaine w/Clonidine 20 mcg/cc (20ml IPACK), Ropivacaine (0.5% 30ml), Other (Decadron 8mg) Volume (cc): 50 Number of Attempts: 1 Complications: None/effective block Vitals: Vital Signs Temperature 97.9 F 04/25/18 08:48 Pulse Rate 65 04/25/18 08:48 Respiratory Rate 18 04/25/18 08:48 Blood Pressure 182/77 04/25/18 08:48 O2 Sat by Pulse Oximetry 98 04/25/18 08:48 Temperature 97.9 F 04/25/18 08:48 Pulse Rate 66 04/25/18 10:13 Respiratory Rate 16 04/25/18 10:13 Blood Pressure 199/76 04/25/18 10:13 O2 Sat by Pulse Oximetry 98 04/25/18 10:13
[2018-04-25] MEDS ORDERED: *HR* HYDROmorphone 2 MG/ML SYRINGE ONE (11:12)
--- NOTE | 2018-04-25 11:38 | Orthopedic Operative Note ---
Date of procedure: 04/25/18 Pre-op diagnosis: Loosening right total knee Post-op diagnosis: same (Aseptic) Procedure: Procedure: Right revision total knee Estimated blood loss: 500 Hardware: Metal and polyethylene replacement. Rosario TS femur: 3, 16 x 100 stem Tibia: 2 TS Melissa: 19 mm Exam Under anesthesia: Full extension flexion to 90 degrees. No erythema well- healed incision no instability Procedural Notes: Aseptic loosening of tibial femoral component Gram stain negative for bacteria fluid normal-appearing Operative procedure: The patient was brought to the operating room and placed on the operating room table. After general anesthesia was administered the operative knee was examined. Findings were noted in the exam under anesthesia. The operative extremity was prepped and draped in sterile surgical fashion. The patient received IV antibiotics prior to skin incision. A standard midline incision was made centered over the patella through the old incision. The incision was made through the skin and subcutaneous tissue. A medial parapatellar tendon approach was performed. Care was taken to preserve tissue along the medial aspect of the patella. And to protect the patella tendon. The deep MCL was released off the medial tibia. The infra patella fat pad was excised. Fluid was encountered this was normal joint fluid, Cultures were obtained and gram . The knee sat for 1 minute with antibacterial solution The knee was brought into flexion the poly-was removed. The interface between the patient's femoral component and distal femur were disrupted with a osteotome and oscillating saw. Femoral component was removed removed without significant bone loss and with minimal effort. Attention was then turned to the tibial component. The same technique was used to remove the tibial component by disrupting the interface between the patient's tibial component and the patients proximal tibia. The tibial component was loose, was removed without significant bone loss. The tibia was sized to a 2 prepared with The large she will follow-up fin cutter. Trial had good fit and fixation. The femur was sized to a 3, was reamed up to a 16 x 100 The finishing guide was seated and the box cut was made. The trial had good fit and fixation. Both trial components were seated and the 19 constrained Melissa was seated and secured. The knee had full flexion and full extension with no instability. Patella had excellent patella tracking. The trial components were removed. The knee sat for 2 minutes with a antibacterial solution. It was irrigated out with 2 L of pulse irrigation. The components were assembled on the back table, the tibia cemented first followed by the femur. The 19 constrained liner was seated and secure. The knee was brought to full extension while the cement hardened. After the cement hardened the knee was irrigated out again. The extensor mechanism was closed with a running #2 Fiberwire suture and a running #2 PDS suture. The deep tissue was irrigated and closed deep with #1 PDS suture superficially with 0 PDS suture. The skin was closed with skin evelyn. The patient was placed in a sterile dressing and postoperative brace. They were extubated and transferred to recovery room in stable condition. Anesthesia: GETA Surgeon: Storm Jorgensen Was there an assistant spa manager present: No Estimated blood loss (cc): 500 Condition: stable Disposition: PACU
[2018-04-25 12:59] LABS: Hematocrit 30.2 % (35.3-44.9); Hemoglobin 9.8 g/dL (11.5-15.4)
--- NOTE | 2018-04-25 13:19 | Anesthesia Evaluation Post Op ---
Date of Encounter: 04/25/18 Time of Encounter: 13:17 - Vital Signs Vital Signs: Vital Signs/O2 Sat, Most Current Temp Pulse Resp BP Pulse Ox 97.2 F L 61 16 156/65 94 04/25/18 13:07 04/25/18 13:07 04/25/18 13:07 04/25/18 13:07 04/25/18 13:07 - Lungs Lungs: Clear Ascult./Percussion - Airway Airway: Non-obstructed - Cardiovascular Regular Rate - Mental Status Mental Status: Alert & Oriented, Answers Appropriately - Pain Pain Scale used: Numeric (1 - 10) (tolerable) - Nausea Vomiting Nausea Vomiting: Not Present - Hydration Hydration: NPO - Discharge PostOp Status: Transfer Patient to floor
[2018-04-25] MEDS ORDERED: MOM Conc 10 ML UD.LIQ PO PRN (13:46)
[2018-04-25] MEDS ORDERED: Temazepam 15 MG CAPSULE PO PRN (13:46)
[2018-04-25] MEDS ORDERED: Ondansetron 4 MG/2 ML VIAL IVP PRN (13:46)
[2018-04-25] MEDS ORDERED: Sennosides 8.6 MG TABLET PO PRN (13:46)
[2018-04-25] MEDS ORDERED: Naloxone 0.4 MG/ML INJ IVP PRN (13:46)
[2018-04-25] MEDS: *HR* OxyCODONE Immed Rel 5 MG TABLET PO PRN ×2 (14:07→19:42)
--- NOTE | 2018-04-25 14:20 | Discharge Summary ---
- NOTES TO OUTPATIENT PROVIDER Notes to Outpatient Provider: Acute blood loss anemia*. Chronic pain Orders not resulted at time of discharge: Pending orders 04/25/18 09:30 US anesthesia pain block [US] Stat 04/25/18 11:01 Culture,Anaerobic [RM] Stat Culture,Wound [RM] Stat 04/25/18 11:38 Surgical Pathology [PTH] Routine 04/26/18 04:00 Basic Metabolic Panel AM 0400 Hemoglobin and Hematocrit [HEME] AM 0400 04/27/18 04:00 Basic Metabolic Panel AM 0400 Hemoglobin and Hematocrit [HEME] AM 0400 Date of Encounter: 04/28/18 Time of Encounter: 12:02 - Discharge Diagnosis (1) Aseptic loosening of prosthetic knee Priority: Primary Status: Acute Qualifiers: Encounter type: initial encounter Qualified Code(s): T84.038A - Mechanical loosening of other internal prosthetic joint, initial encounter; Z96.659 - Presence of unspecified artificial knee joint (2) Status post revision of total replacement of right knee Priority: Primary Status: Acute (3) Accelerated hypertension Priority: Secondary Status: Chronic (4) Acute blood loss anemia Priority: Secondary Status: Acute (5) CKD (chronic kidney disease) stage 3, GFR 30-59 ml/min Priority: Secondary Status: Chronic (6) Chronic pain Priority: Secondary Status: Chronic Comments: Continue chronic pain medication - Oxycodone 15mg q 6 hours, with Tramadol in between doses for breakthrough Qualifiers: Chronic pain type: other chronic pain Qualified Code(s): G89.29 - Other chronic pain (7) History of KS (myocardial infarction) Priority: Secondary Status: Chronic (8) Hyperlipidemia Priority: Secondary Status: Chronic Qualifiers: Hyperlipidemia type: unspecified Qualified Code(s): E78.5 - Hyperlipidemia, unspecified (9) Takotsubo cardiomyopathy Priority: Secondary Status: Chronic (10) Obesity Priority: Secondary Status: Chronic Qualifiers: Obesity type: due to excess calories Obesity classification: adult class 1 (BMI 30 - 34.9) Serious obesity comorbidity presence: without serious comorbidity Body mass index: BMI 32.0-32.9 Qualified Code(s): E66.09 - Other obesity due to excess calories; Z68.32 - Body mass index (BMI) 32.0-32.9, adult (11) C. difficile diarrhea Priority: Secondary Status: Acute Comments: Started on Vancomycin 125mg QID on 04/27 after positive test. (12) Acute blood loss anemia Priority: Secondary Status: Acute - Hospital Course Hospital course: Ms. Russell Ramsay is a 83 year old female, POD#. 3 - Plan for D/C 04/28 Cultures: gram stain negative, pre-rangel culture no growth s/p Right TKR Revision on 04/26 Chronic pain medication Oxycodone 15mg. Plan for Tramadol at D/C for breathrough pain Patient seen at bedside, without complaints. A&O x 3 Afebrile, vital signs stable. Vital Signs (72 hours) 04/27/18 10:10 04/27/18 10:25 04/27/18 11:16 Temperature 98.3 F 98.1 F 97.6 F Pulse Rate 83 86 81 Respiratory Rate 16 16 14 Blood Pressure 155/76 148/79 151/73 O2 Sat by Pulse Oximetry 96 96 04/27/18 14:10 04/27/18 15:41 04/27/18 17:10 Temperature 98.1 F 98.2 F 98.3 F Pulse Rate 84 78 74 Respiratory Rate 17 14 16 Blood Pressure 168/74 173/83 179/81 O2 Sat by Pulse Oximetry 97 97 97 04/27/18 17:25 04/27/18 19:27 04/27/18 20:31 Temperature 98.1 F 98.3 F 98.9 F Pulse Rate 74 80 83 Respiratory Rate 15 18 16 Blood Pressure 148/82 156/74 144/83 O2 Sat by Pulse Oximetry 98 96 96 04/27/18 21:39 04/27/18 23:12 04/28/18 00:08 Temperature 98.4 F Pulse Rate 69 68 Respiratory Rate 17 Blood Pressure 152/78 171/93 139/74 O2 Sat by Pulse Oximetry 94 04/28/18 03:18 04/28/18 07:27 Temperature 98.4 F 97.2 F L Pulse Rate 67 83 Respiratory Rate 17 17 Blood Pressure 157/73 150/82 O2 Sat by Pulse Oximetry 93 Labs reviewed. H/H - reviewed - Acute blood loss anemia 04/26 - type and cross and hold 2 units. 04/27 - Transfuse 2 units; 04/27 - +C.Diff test. STarted on Vancomycin PO per pharmacy recommendation. Continue through 05/07/1804/28 - H/H improved. Abnormal Labs 04/25/18 04/25/18 04/26/18 12:38 14:58 03:44 WBC Hgb 9.8 L 8.4 L Hct 30.2 L 26.1 L Chloride Est GFR ( Amer) Est GFR (Non-Af Amer) Glucose POC Glucose Calcium Stl C. diff Tox B Gene Crossmatch See Detail 04/26/18 04/27/18 04/27/18 03:44 03:13 06:09 WBC Hgb 7.3 L Hct 23.5 L Chloride Est GFR ( Amer) Est GFR (Non-Af Amer) 50 L Glucose 171 H POC Glucose Calcium Stl C. diff Tox B Gene Positive A Crossmatch 04/27/18 04/27/18 04/27/18 06:51 07:17 10:55 WBC 11.4 H Hgb Hct Chloride 110 H Est GFR ( Amer) Est GFR (Non-Af Amer) 49 L Glucose POC Glucose 103 H Calcium 8.3 L Stl C. diff Tox B Gene Crossmatch 04/28/18 04/28/18 07:55 08:00 WBC Hgb 11.4 L D Hct 35.0 L Chloride Est GFR ( Amer) 55 L Est GFR (Non-Af Amer) 45 L Glucose 113 H POC Glucose Calcium Stl C. diff Tox B Gene Crossmatch Pain control: adequate - Continue Chronic pain, printed for [facility] Participating in PT. All questions and concerns addressed. Educated on use of incentive spirometer. Encouraged ambulation and proper hydration. Patient educated on post-operative restrictions and post-operative care. Assessment and plan: Continue with postoperative care Discharge plan: ECF, discharge due to auth. CBC on Monday, monitor acute blood loss anemia. Continue iron supplement Monitor CBC - Time Spent with Patient Total time spent providing and/or coordinating discharge services: - Discharge Medications Prescriptions: Aspirin Enteric Coated [Aspirin EC] 325 mg PO BID #20 tablet. Tramadol HCl [Ultram] 50 mg PO TID PRN 7 Days #21 tab PRN Reason: Breakthrough Pain Home Medications: Aspirin Enteric Coated [Aspirin EC] 325 mg PO BID #20 tablet. 04/25/18 [Rx] Atorvastatin [Lipitor] 40 mg PO HS 04/25/18 [History] Carvedilol 12.5 mg PO DAILY 04/25/18 [History] Diclofenac Sodium [Voltaren] 2 gm TP BID 04/25/18 [History] Lisinopril [Zestril] 20 mg PO DAILY 04/25/18 [History] Omeprazole [PriLOSEC] 20 mg PO DAILY 04/25/18 [History] Pregabalin [Lyrica] 100 mg PO Q48H 04/25/18 [History] Tramadol HCl [Ultram] 50 mg PO TID PRN 7 Days #21 tab 04/25/18 [Rx] Docusate [Colace] 100 mg PO BID capsule 04/27/18 [Rx] Lidocaine Patch [Lidoderm 5% patch] 1 each TP DAILY adh..patch 04/27/18 [Rx] Vancomycin Oral Soln [Firvanq] 125 mg PO QID udc 04/27/18 [Rx] Allergies/Adverse Reactions: Allergy/AdvReac Type Severity Reaction Status Date / Time fentanyl AdvReac Nausea Verified 04/25/18 09:14 morphine AdvReac Nausea Verified 04/25/18 09:14 Date of admission: 04/25/18 13:59 Primary care physician: Haydee Kaminski CNP Consults: 04/25/18 13:46 Consult to Occupational Therapy [CONS] Routine Comment: Evaluate, develop and implement POC Reason for Consult: post knee surgery Does patient have active BEDREST order?: No Is patient medically & hemodynamically stable?: Yes Consult to Orthopedic Navigator [CONS] [CONS] Routine Consult to Pastoral Services [CONS] Routine Comment: pt request Consult to Physical Therapy [CONS] Routine Comment: Evaluate, develop and impliment POC Reason for Consult: post knee surgery Does patient have active BEDREST order?: No Is patient medically & hemodynamically stable?: Yes Consult to Manager Nursing [CONS] Routine Reason for SW Consult: post op joint replacement RT Post Op Consult [CONS] Routine Anticipated date of discharge: 04/28/18 Labs on day of discharge: Labs from last 24 hours 04/25/18 12:38 Hgb 9.8 L Hct 30.2 L - Impressions ITS Impressions Knee X-Ray 04/25/18 00:01 IMPRESSION: Satisfactory appearance status post revision total knee arthroplasty D/ / Devendra Barrett MD / Devendra Barrett MD Interpreting Provider: Devendra Barrett MD - Patient Status Disposition: Transfer Inpatient Rehab Fac Condition: Good Functional capacity at discharge: uses cane/walker Overall status at discharge: patient is progressing back to baseline - Discharge Instructions Follow Up With: Haydee Kaminski CNP [Primary Care Provider] - Additional Instructions: Discharge Instructions: Total Knee Replacement Please call [facility] ([phone]), your Primary Care Physician, or report to the Emergency Room if you have any of the following symptoms: Nausea, vomiting, fever greater that 101.5, swelling, chest pain, shortness of breath, increased pain/redness/drainage/odor for your incision site, numbness/tingling, or any other concerning symptoms. ACTIVITY:Weight-bearing as tolerated. You may progress off support (crutches or walker) as tolerated. Incentive Spirometer 10 times an hour. MEDICATIONS: Upon discharge resume your home medications. Take all the medications as prescribed. Take a stool softener if taking narcotic pain medications. Stool softeners are only effective if you drink enough fluids. Drink 6-8 glass of water or fluids a day, unless this is not allowed for another health problem. Despite using stool softeners, if you haven't had a bowel movement in 3 days, please switch to a gentle laxative. Gentle laxatives are sold over the counter. You should have a bowel movement within 24 hours, if not call the office. You will be discharged from the hospital with a prescription for pain medication. You are encouraged to decrease the use of narcotic pain medication as tolerated. Should you require a refill, please call the office. [facility] prescribes narcotic pain medication for only 4-6 weeks after surgery. If you require pain medication beyond this time period, you may be referred to your Primary Care Physician or to the Pain Clinic for further evaluation. Plan ahead for refills on pain medication as many narcotics either need to be picked up at the office or mailed. It is best to call 48-72 hours in advance of needing a prescription refill so you don't run out of medication. To help control the post-operative pain, you may take NSAIDs (Aleve,Advil, Motrin, Ibuprofen, Naprosyn) or Tylenol as prescribed on the bottle in addition to the pain medication. ANTICOAGULATION (blood thinners): Continue your Aspirin, Lovenox or Coumadin as prescribed to help prevent a blood clot in the leg or in the lungs. As long as your incision remains dry and you tolerate the NSAIDs (Aleve, Advil, Motrin, ibuprofen, naprosyn), it is OK to use the NSAIDS while you are taking your anticoagulation medication. Should your incision start to drain, stop the NSAID and contact our office. Common symptoms of blood clot in the legs include: localized pain, swelling, calf tenderness, redness or discoloration of the skin. Blood clot in the lung symptoms include: shortness of breath, rapid pulse, sweating, and chest pain that worsens with deep breathing, coughing up blood, lightheadedness, feelings of anxiety. If you experience any of these symptoms notify your physician immediately, go to the emergency room, or if having trouble breathing, call 911. WOUND CARE: Leave the dressing on for 7 to 10days. You may change the dressing if it becomes saturated greater than 50%. Do not get the dressing wet at anytime. Wash your hands with antibacterial soap, rinse and dry prior to any wound care. If you have evelyn the visiting nurse or rehab facility can remove the stapes 10-14 days after surgery and place steri-strips across the wound. Leave the steri-strips in place until they fall off on their won. You may let water from the shower run on top of the steri-strips. If you do not have a visiting nurse or rehab facility, you will need to return to the office at 10-14 days for the evelyn to be removed. If you have itching or redness around the dressing call the office. FOLLOW-UP: Please follow up with your surgeon in the orthopedic clinic in 4 weeks from the day of surgery. If you have evelyn that need to be removed, you will need to come back to the office in 10-14 days from the day of surgery. - Diet and Activity Activity: as per physical therapy
[2018-04-25] MEDS: traMADol 50 MG TABLET PO PRN (16:10)
[2018-04-25] MEDS: *HR* Enoxaparin 30 MG/0.3 ML SYRINGE SQ SCH (17:39)
[2018-04-25] MEDS: Pregabalin 50 MG CAPSULE PO SCH (17:39)
[2018-04-25] MEDS ORDERED: *HR* Enoxaparin 30 MG/0.3 ML SYRINGE SQ SCH (18:00)
[2018-04-26] MEDS: *HR* OxyCODONE Immed Rel 5 MG TABLET PO PRN ×4 (00:05→20:55)
[2018-04-26] MEDS: *HR* OxyCODONE/APAP 5/325 TABLET PO PRN ×5 (03:42→23:13)
[2018-04-26 04:12] LABS: Hematocrit 26.1 % (35.3-44.9); Hemoglobin 8.4 g/dL (11.5-15.4)
[2018-04-26 04:31] LABS: BUN/Creatinine Ratio 19 (6-26); Blood Urea Nitrogen 20 mg/dL (8-23); Calcium 8.7 mg/dL (8.6-10.3); Carbon Dioxide 23 mEq/L (23-29); Chloride 106 mEq/L (98-107); Glucose 171 mg/dL (70-105); Osmolality,Calculated 289 (280-300); Potassium 4.3 mEq/L (3.5-5.1); Sodium 136 mEq/L (136-145); eGFR For Non-African Americans 50 (> 60)
[2018-04-26] MEDS: *HR* Enoxaparin 30 MG/0.3 ML SYRINGE SQ SCH ×2 (05:41→18:11)
--- NOTE | 2018-04-26 08:01 | Orthopedics Progress Note ---
Date of Encounter: 04/26/18 Time of Encounter: 08:00 Subjective Interval history: Patient was seen this morning doing well without complaints. Afebrile vital signs stable. Operative extremity: Neurovascularly intact Dressing clean dry and intact Calves nontender Assessment and plan: Continue with postoperative care Hemoglobin 8.4 Gram stain negative for bacteria Objective Vital signs: Vital Signs Temp Pulse Resp BP Pulse Ox 04/26/18 06:44 98.3 F 71 18 156/81 96 04/26/18 04:16 98.0 F 76 16 162/78 95 04/25/18 23:10 97.9 F 80 17 156/62 94 04/25/18 18:59 97.4 F L 78 16 182/81 96 04/25/18 16:31 97.8 F 76 18 155/84 100 04/25/18 14:50 97.6 F 67 15 146/81 99 04/25/18 14:20 97.5 F L 64 16 164/81 100 04/25/18 13:46 97.6 F 59 16 178/80 100 04/25/18 13:17 97.2 F L 67 15 157/72 96 04/25/18 13:07 97.2 F L 61 16 156/65 94 04/25/18 12:57 66 17 172/75 96 04/25/18 12:47 69 21 137/62 92 04/25/18 12:36 97.0 F L 69 17 142/77 94 04/25/18 12:26 72 16 163/74 93 04/25/18 12:16 73 12 157/72 93 04/25/18 12:06 97.0 F L 76 14 116/44 93 04/25/18 10:28 68 14 202/79 98 04/25/18 10:13 66 16 199/76 98 04/25/18 09:57 66 14 184/72 98 04/25/18 08:48 97.9 F 65 18 182/77 98 Intake and Output 04/25/18 04/26/18 04/26/18 23:59 07:59 15:59 Intake Total 100 / 100 200 / 200 Output Total 400 / 400 200 / 200 Balance -300 / -300 0 / 0 Intake: IV Fluids 100 / 100 Ancef 2,000 MG In 0.9 % Sodium 100 / 100 Chloride 100 ML @ 200 mls/hr IVPB Q8HR HARVEY Rx#:[id number] Oral 200 / 200 Output: Urine 400 / 400 200 / 200 Other: # Voids 1 Weight 86.184 kg Patient Weight 04/26/18 23:59 Weight 86.184 kg - Labs CBC & BMP: 04/26/18 03:44 04/26/18 03:44 Labs: Abnormal lab results Hgb 8.4 g/dL (11.5-15.4) L 04/26/18 03:44 Hct 26.1 % (35.3-44.9) L 04/26/18 03:44 Est GFR (Non-Af Amer) 50 (> 60) L 04/26/18 03:44 Glucose 171 mg/dL (70-105) H 04/26/18 03:44 Consult Discharge Plan - Plan Referrals: Haydee Kaminski, CLINICAL PHLEBOTOMIST [Primary Care Provider] - Prescriptions: Aspirin Enteric Coated [Aspirin EC] 325 mg PO BID #20 tablet. Tramadol HCl [Ultram] 50 mg PO TID PRN 7 Days #21 tab PRN Reason: Breakthrough Pain
[2018-04-26] MEDS: Lisinopril 20 MG TABLET PO SCH (08:31)
[2018-04-26] MEDS: Aspirin Enteric Coated 81 MG Tablet PO SCH (08:31)
--- NOTE | 2018-04-26 12:20 | Event Note ---
Date of Encounter: 04/26/18 Time of Encounter: 12:19 PCR - POD#. 1 Cultures: s/p Right TKR Revision on 04/26 Chronic pain medication Oxycodone 15mg. Plan for Tramadol at D/C for breathrough pain Patient seen at bedside, without complaints. A&O x 3 Afebrile, vital signs stable. Labs reviewed. H/H - stable, asymptomatic - Acute blood loss anemia 04/26 - type and cross and hold 2 units. Pain control: adequate Participating in PT. All questions and concerns addressed. Educated on use of incentive spirometer. Encouraged ambulation and proper hydration. Patient educated on post-operative restrictions and post-operative care. Assessment and plan: Continue with postoperative care Discharge plan: ECF, discharge due to auth. Short CBC 04/26/18 04/25/18 Range/Units 03:44 12:38 Hgb 8.4 L 9.8 L (11.5-15.4) g/dL Hct 26.1 L 30.2 L (35.3-44.9) % BMP 04/26/18 Range/Units 03:44 Sodium 136 (136-145) mEq/L Potassium 4.3 (3.5-5.1) mEq/L Chloride 106 (98-107) mEq/L Carbon Dioxide 23 (23-29) mEq/L BUN 20 (8-23) mg/dL Creatinine 1.05 (0.60-1.20) mg/dL Glucose 171 H (70-105) mg/dL Calcium 8.7 (8.6-10.3) mg/dL Vital Signs Temp Pulse Resp BP Pulse Ox 04/26/18 10:30 98.5 F 92 16 151/92 96 04/26/18 06:44 98.3 F 71 18 156/81 96 04/26/18 04:16 98.0 F 76 16 162/78 95 04/25/18 23:10 97.9 F 80 17 156/62 94 04/25/18 18:59 97.4 F L 78 16 182/81 96 04/25/18 16:31 97.8 F 76 18 155/84 100 04/25/18 14:50 97.6 F 67 15 146/81 99 04/25/18 14:20 97.5 F L 64 16 164/81 100 04/25/18 13:46 97.6 F 59 16 178/80 100 04/25/18 13:17 97.2 F L 67 15 157/72 96 04/25/18 13:07 97.2 F L 61 16 156/65 94 04/25/18 12:57 66 17 172/75 96 04/25/18 12:47 69 21 137/62 92 04/25/18 12:36 97.0 F L 69 17 142/77 94 04/25/18 12:26 72 16 163/74 93 Intake and Output 04/25/18 04/26/18 04/26/18 23:59 07:59 15:59 Intake Total 100 / 100 200 / 200 Output Total 400 / 400 200 / 200 Balance -300 / -300 0 / 0 Intake: IV Fluids 100 / 100 Ancef 2,000 MG In 0.9 % Sodium 100 / 100 Chloride 100 ML @ 200 mls/hr IVPB Q8HR [facility] Rx#:[id number] Oral 200 / 200 Output: Urine 400 / 400 200 / 200 Other: Stool Size Large Stool Consistency formed Stool Characteristics Normal for Patient Stool Color Brown # Voids 1 Weight 86.184 kg Patient Weight 04/26/18 23:59 Weight 86.184 kg
--- NOTE | 2018-04-26 12:22 | Physician Discharge Referral ---
ExtendedCare Referral Info Transfer To: F Provider in Charge after Transfer: PCP Institutional Level of Care: Skilled - Diagnosis (1) Status post revision of total replacement of right knee Priority: Primary Status: Acute (2) Loosening of knee joint prosthesis Priority: Primary Status: Acute (3) Accelerated essential hypertension Priority: Secondary Status: Chronic (4) CKD (chronic kidney disease) stage 3, GFR 30-59 ml/min Priority: Secondary Status: Chronic (5) Chronic pain Priority: Secondary Status: Chronic (6) High risk medication use Priority: Secondary Status: Chronic (7) History of SD (myocardial infarction) Priority: Secondary Status: Chronic (8) Hyperlipidemia Priority: Secondary Status: Chronic (9) Obesity Priority: Secondary Status: Deleted (10) Takotsubo cardiomyopathy Priority: Secondary Status: Chronic Expected Duration of Placement: < 30 days Prognosis: Good Aware of Diagnosis: Patient Aware of Prognosis: Patient - Transfer Medications Prescriptions: OxyCODONE Immed Rel [Roxicodone 15 MG] 15 mg PO Q6HR 2 Days #8 tablet Aspirin Enteric Coated [Aspirin EC] 325 mg PO BID #20 tablet. Tramadol HCl [Ultram] 50 mg PO TID PRN 7 Days #21 tab PRN Reason: Breakthrough Pain Home Medications: Aspirin Enteric Coated [Aspirin EC] 325 mg PO BID #20 tablet. 04/25/18 [Rx] Atorvastatin [Lipitor] 40 mg PO HS 04/25/18 [History] Carvedilol 12.5 mg PO DAILY 04/25/18 [History] Diclofenac Sodium [Voltaren] 2 gm TP BID 04/25/18 [History] Lisinopril [Zestril] 20 mg PO DAILY 04/25/18 [History] Omeprazole [PriLOSEC] 20 mg PO DAILY 04/25/18 [History] Pregabalin [Lyrica] 100 mg PO Q48H 04/25/18 [History] Tramadol HCl [Ultram] 50 mg PO TID PRN 7 Days #21 tab 04/25/18 [Rx] Docusate [Colace] 100 mg PO BID capsule 04/27/18 [Rx] Lidocaine Patch [Lidoderm 5% patch] 1 each TP DAILY adh..patch 04/27/18 [Rx] OxyCODONE Immed Rel [Roxicodone 15 MG] 15 mg PO Q6HR 2 Days #8 tablet 04/27/18 [Rx] Vancomycin Oral Soln [Firvanq] 125 mg PO QID udc 04/27/18 [Rx] Allergies/Adverse Reactions: Allergy/AdvReac Type Severity Reaction Status Date / Time fentanyl AdvReac Nausea Verified 04/25/18 09:14 morphine AdvReac Nausea Verified 04/25/18 09:14 - Respiratory Orders None Smoking Cessation: Smoking cessation has been advised. For more information, call the [place] Tobacco Quit Line at 8-920-YTJM-NOW. - Lab Orders Lab Orders: CBC - Advance Directives Code Status: Full Code - Mobility Orders Chair, Ambulate - Rehabiliation Orders Rehab Potential: Good Rehab Orders: ROM Exercises, Evaluation for Physical Therapy, Evaluation for Occupational Therapy Other: Opsite dressing, leave intact until first post-operative visit. If dressing becomes >50% saturated, contact office, remove dressing and place appropriate dressing in its place. Do not allow for dressing to get wet. Zipline in place, plan to remove at post-operative day #14-16. Total Joint Precautions x 6 weeks Apply cold therapy wrap 3-6x/day for 20 minutes at a time. Encourage ambulation throughout the day Use Incentive spirometer 10x/hour. Elevate affected extremity above heart as tolerated. Brace: Wear knee immobilizer at night until first post-operative appt. - Treatments List/Other: Opsite dressing, leave intact until first post-operative visit. If dressing becomes >50% saturated, contact office, remove dressing and place appropriate dressing in its place. Do not allow for dressing to get wet. Zipline in place, plan to remove at post-operative day #14-16. Total Joint Precautions x 6 weeks Apply cold therapy wrap 3-6x/day for 20 minutes at a time. Encourage ambulation throughout the day Use Incentive spirometer 10x/hour. Elevate affected extremity above heart as tolerated. Brace: Wear knee immobilizer at night until first post-operative appt. CERTIFICATION: I certify that the transfer of the above named patient to an Extended Care Facility is necessary for the continuing treatment of the diagnosis listed. The above information is true and accurate reflection of patient's current condition. Confidential - Redisclosure prohibited without a patient's written consent.
[2018-04-26] MEDS: traMADol 50 MG TABLET PO PRN (19:42)
[2018-04-27] MEDS: *HR* OxyCODONE Immed Rel 5 MG TABLET PO PRN ×5 (01:05→20:40)
[2018-04-27] MEDS: traMADol 50 MG TABLET PO PRN (03:02)
[2018-04-27] MEDS ORDERED: metroNIDAZOLE 500 MG TABLET PO SCH (05:14)
[2018-04-27] MEDS: *HR* Enoxaparin 30 MG/0.3 ML SYRINGE SQ SCH ×2 (05:58→17:11)
[2018-04-27] MEDS: Acetaminophen IV 1,000 MG/100 ML INFUS..BTL IVPB SCH ×4 (05:59→23:34)
[2018-04-27 06:28] LABS: Hematocrit 23.5 % (35.3-44.9); Hemoglobin 7.3 g/dL (11.5-15.4)
[2018-04-27] MEDS ORDERED: Furosemide 20 MG/2 ML VIAL IVP ONE ×3 (06:44→20:31)
--- NOTE | 2018-04-27 06:50 | Orthopedics Progress Note ---
Date of Encounter: 04/27/18 Time of Encounter: 06:49 Subjective Interval history: Patient was seen this morning complanes of pain in the knee Afebrile vital signs stable. Operative extremity: Neurovascularly intact Dressing clean dry and intact Calves nontender Assessment and plan: Continue with postoperative care Hemoglobin 7.3 transfuse 2 units, patient positive for C. difficile, begin Flagyl Objective Vital signs: Vital Signs Temp Pulse Resp BP Pulse Ox 04/27/18 04:52 98.5 F 90 16 143/80 95 04/26/18 23:12 85 163/81 04/26/18 22:50 97.9 F 78 17 171/81 96 04/26/18 18:20 98.1 F 89 16 147/68 96 04/26/18 14:52 98.3 F 80 16 141/74 98 04/26/18 12:31 98.8 F 80 16 150/78 100 04/26/18 10:30 98.5 F 92 16 151/92 96 Intake and Output 04/26/18 04/26/18 04/27/18 15:59 23:59 07:59 Intake Total 240 / 240 Output Total 200 / 200 200 / 200 Balance 40 / 40 -200 / -200 Intake: Oral 240 / 240 Output: Urine 200 / 200 200 / 200 Other: Meal Breakfast Percent of Meal Consumed 50% Stool Size Large Moderate Moderate Stool Consistency formed liquid liquid Stool Characteristics Normal for Patient Stool Color Brown Brown Brown # Voids 1 # Bowel Movements 1 1 Weight 86.181 kg 87.2 kg Patient Weight 04/27/18 23:59 Weight 87.2 kg - Labs CBC & BMP: 04/27/18 06:09 04/26/18 03:44 Labs: Abnormal lab results Hgb 7.3 g/dL (11.5-15.4) L 04/27/18 06:09 Hct 23.5 % (35.3-44.9) L 04/27/18 06:09 Est GFR (Non-Af Amer) 50 (> 60) L 04/26/18 03:44 Glucose 171 mg/dL (70-105) H 04/26/18 03:44 Stl C. diff Tox B Gene Positive (Negative) A 04/27/18 03:13 Consult Discharge Plan - Plan Referrals: Haydee Kaminski, BODY ARTIST [Primary Care Provider] - Prescriptions: Aspirin Enteric Coated [Aspirin EC] 325 mg PO BID #20 tablet. Tramadol HCl [Ultram] 50 mg PO TID PRN 7 Days #21 tab PRN Reason: Breakthrough Pain
[2018-04-27 07:42] LABS: Calcium 8.3 mg/dL (8.6-10.3); Potassium 3.7 mEq/L (3.5-5.1)
[2018-04-27] MEDS: Aspirin Enteric Coated 81 MG Tablet PO SCH (08:53)
[2018-04-27] MEDS: Lisinopril 20 MG TABLET PO SCH (08:53)
[2018-04-27] MEDS ORDERED: 0.9 % Sodium Chloride 250 ML ONE ×2 (09:31→16:49)
[2018-04-27] MEDS: Vancomycin Oral Soln 125 MG/2.5 ML UDC PO SCH ×4 (09:45→20:40)
--- NOTE | 2018-04-27 10:56 | Event Note ---
Date of Encounter: 04/27/18 Time of Encounter: 10:55 PCR - POD#. 2 Cultures: gram stain negative, pre-rangel culture no growth s/p Right TKR Revision on 04/26 Chronic pain medication Oxycodone 15mg. Plan for Tramadol at D/C for breathrough pain Patient seen at bedside, without complaints. A&O x 3 Afebrile, vital signs stable. Labs reviewed. H/H - reviewed - Acute blood loss anemia 04/26 - type and cross and hold 2 units. 04/27 - Transfuse 2 units Pain control: adequate - Continue Chronic pain, printed for ECF Participating in PT. All questions and concerns addressed. Educated on use of incentive spirometer. Encouraged ambulation and proper hydration. Patient educated on post-operative restrictions and post-operative care. Assessment and plan: Continue with postoperative care Discharge plan: ECF, discharge due to auth.
[2018-04-27] MEDS: *HR* OxyCODONE/APAP 5/325 TABLET PO PRN ×3 (12:16→23:35)
[2018-04-27] MEDS: Pregabalin 50 MG CAPSULE PO SCH (13:30)
[2018-04-28] MEDS: *HR* OxyCODONE Immed Rel 5 MG TABLET PO PRN ×2 (02:42→08:01)
[2018-04-28] MEDS: *HR* OxyCODONE/APAP 5/325 TABLET PO PRN ×2 (05:05→11:27)
[2018-04-28] MEDS: *HR* Enoxaparin 30 MG/0.3 ML SYRINGE SQ SCH (05:06)
[2018-04-28] MEDS: Acetaminophen IV 1,000 MG/100 ML INFUS..BTL IVPB SCH ×2 (06:02→06:56)
[2018-04-28 07:28] VITALS: BP 150/82
[2018-04-28] MEDS: Vancomycin Oral Soln 125 MG/2.5 ML UDC PO SCH (08:00)
[2018-04-28] MEDS: Lisinopril 20 MG TABLET PO SCH (08:00)
[2018-04-28] MEDS: Aspirin Enteric Coated 81 MG Tablet PO SCH (08:00)
[2018-04-28 08:26] LABS: Potassium 3.6 mEq/L (3.5-5.1)
[2018-04-28 08:27] LABS: Hemoglobin 11.4 g/dL (11.5-15.4)
== END 2018-04-28 11:28 | DRG 467 ==
LOC: SAMDAY 08:13 → 3NENU 13:59
PROVIDERS: ADMIT Orthopaedic Surgery; ATTEND Orthopaedic Surgery

== ENCOUNTER 2021-08-31 14:24 | Inpatient (IN) ==
[2021-08-31] MEDS ORDERED: Ondansetron 4 MG/2 ML VIAL IVP PRN ×2 (16:59→23:30)
[2021-08-31 17:06] LABS: Bacteria,Urine Few per hpf (None-Few); Bilirubin,Urine Negative (Negative); Blood,Urine Negative (Negative); Clarity,Urine Clear (Clear); Color,Urine Yellow (Yellow); Glucose,Urine (UA) Normal (Normal); Hyaline Casts,Urine Few per lpf (None Seen); Ketones,Urine 10 mg/dL (Negative); Leukocyte Esterase,Urine Negative (Negative); Mucus,Urine Few per lpf (None-Few); Nitrite,Urine Positive (Negative); Protein,Urine >=300 mg/dL (Neg-Trace); RBC,Urine 0-3 per hpf (0-3); Specific Gravity,Urine 1.027 (1.010-1.025); Squamous Epithelial Cell,Urine Few per hpf (None-Few); Urobilinogen,Urine Normal (Normal)
[2021-08-31 17:08] LABS: Basophils % 0.2 %; Eosinophils % 0.1 %; Hematocrit 41.1 % (35.3-44.9); Hemoglobin 13.4 g/dL (11.5-15.4); Immature Granulocytes % 0.5 % (0-4); Lymphocytes # 1.6 K/mcL (0.6-4.6); Lymphocytes % 9.6 %; Mean Corpuscular HGB Conc 32.6 g/dL (31.6-35.5); Mean Corpuscular Hemoglobin 30.1 pg (28.0-33.3); Mean Corpuscular Volume 92.4 fL (83.0-100.0); Monocytes # 0.8 K/mcL (0.0-1.3); Platelet Count 387 K/mcL (140-400); Red Blood Count 4.45 M/mcL (3.82-4.97); Red Cell Distribution Width 15.4 % (11.5-14.5); Segmented Neutrophils % 84.6 %; White Blood Count 16.6 K/mcL (4.3-11.1)
[2021-08-31 17:17] LABS: INR 1.2; Prothrombin Time 13.3 Seconds (9.4-12.1)
[2021-08-31 17:19] LABS: Activated Partial Thrombo Time 33.1 Seconds (26.0-36.0)
[2021-08-31 17:25] LABS: BUN/Creatinine Ratio 20 (6-26); Blood Urea Nitrogen 21 mg/dL (8-23); C-Reactive Protein 28 mg/L (Less than 10); Carbon Dioxide 24 mEq/L (23-29); Chloride 102 mEq/L (98-107); Glucose 155 mg/dL (70-105); Osmolality,Calculated 294 (280-300); Potassium 3.4 mEq/L (3.5-5.1); Sodium 139 mEq/L (136-145); eGFR For African Americans > 60 (> 60); eGFR For Non-African Americans 51 (> 60)
[2021-08-31 17:26] LABS: Troponin I < 0.03 ng/mL (< 0.04)
[2021-08-31] MEDS ORDERED: *HR* Labetalol 20 MG/4 ML SYRINGE IVP ONE (19:00)
[2021-08-31] MEDS ORDERED: Piperacillin/Tazobactam 3.375 GM in 0.9 % Sodium Chloride Mini Bag 100 ML IVPB ONE (19:04)
[2021-08-31] MEDS ORDERED: Metoclopramide 10 MG/2 ML VIAL IVP ONE (19:16)
[2021-08-31] MEDS ORDERED: *HR* HYDROmorphone (PF) 1 MG/ML SYRINGE IVP ONE (19:33)
[2021-08-31] MEDS ORDERED: Ondansetron 4 MG/2 ML VIAL IVP ONE (19:33)
[2021-08-31] MEDS ORDERED: 0.9 % Sodium Chloride 500 ML IV ONE (19:33)
[2021-08-31 19:47] LABS: Alanine Aminotransferase 12 Units/L (7-52); Alkaline Phosphatase 110 Units/L (34-104); Aspartate Amino Transferase 14 Units/L (13-39); Bilirubin,Indirect 0.5 mg/dL (0.0-1.0); Bilirubin,Total 0.5 mg/dL (0.3-1.0); Globulin 4.1 g/dL (2.4-3.5); Lipase 1113 Units/L (11-82); Total Protein 8.1 g/dL (6.4-8.9)
[2021-08-31 20:35] LABS: Influenza A PCR Negative (Negative); Influenza B PCR Negative (Negative); Resp. Syncytial Virus PCR Negative (Negative)
[2021-08-31 20:45] LABS: SARS-CoV-2 by PCR (In House) Negative (Negative)
[2021-08-31] MEDS ORDERED: Naloxone 0.4 MG/ML INJ IVP PRN (21:16)
[2021-08-31] MEDS ORDERED: Acetaminophen 325 MG TABLET PO PRN (21:25)
[2021-08-31] MEDS ORDERED: Ringers Solution, Lactated 1,000 ML IVC SCH (21:30)
[2021-08-31] MEDS ORDERED: *HR* HYDROcodone/Acet 10/325 mg TABLET PO PRN (22:53)
[2021-08-31] MEDS ORDERED: *HR* Promethazine 25 MG/ML VIAL IM ONE (22:54)
[2021-08-31] MEDS ORDERED: *HR* HYDROmorphone (PF) 1 MG/ML SYRINGE IVP PRN (22:56)
[2021-09-01] MEDS: carvediloL 6.25 MG TABLET PO SCH ×3 (01:00→16:34)
[2021-09-01 01:43] LABS: Adenovirus Not Detected (Not Detect); Coronavirus 229E Not Detected (Not Detect); Coronavirus HKU1 Not Detected (Not Detect); Coronavirus NL63 Not Detected (Not Detect); Coronavirus OC43 Not Detected (Not Detect); Human Metapneumovirus Not Detected (Not Detect); Human Rhinovirus/Enterovirus Not Detected (Not Detect); Influenza A Subtype 2009 H1 Not Detected (Not Detect); SARS-CoV-2 Not Detected (Not Detect)
[2021-09-01 01:44] LABS: Bordetella Pertussis Not Detected (Not Detect); Chlamydophila pneumoniae Not Detected (Not Detect); Influenza B Not Detected (Not Detect); Mycoplasma pneumoniae Not Detected (Not Detect); Parainfluenza Virus 1 Not Detected (Not Detect); Parainfluenza Virus 2 Not Detected (Not Detect); Parainfluenza Virus 3 Not Detected (Not Detect); Parainfluenza Virus 4 Not Detected (Not Detect); Respiratory Syncytial Virus Not Detected (Not Detect)
[2021-09-01] MEDS: niCARdipine 20 MG/200 ML MLS IVC SCH ×8 (02:21→16:31)
[2021-09-01] MEDS: Piperacillin/Tazobactam 3.375 GM in 0.9 % Sodium Chloride Mini Bag 100 ML IVPB SCH ×4 (02:28→23:39)
[2021-09-01 03:28] LABS: Basophils % 0.1 %; Hematocrit 40.3 % (35.3-44.9); Hemoglobin 13.2 g/dL (11.5-15.4); Immature Granulocytes % 0.4 % (0-4); Lymphocytes # 1.7 K/mcL (0.6-4.6); Lymphocytes % 7.9 %; Mean Corpuscular HGB Conc 32.8 g/dL (31.6-35.5); Mean Corpuscular Hemoglobin 30.1 pg (28.0-33.3); Mean Platelet Volume 9.9 fL (9.4-12.4); Monocytes # 1.6 K/mcL (0.0-1.3); Monocytes % 7.5 %; Neutrophils # 18.3 K/mcL (1.6-8.9); Platelet Count 393 K/mcL (140-400); Red Blood Count 4.38 M/mcL (3.82-4.97); Red Cell Distribution Width 15.3 % (11.5-14.5); Segmented Neutrophils % 84.1 %; White Blood Count 21.8 K/mcL (4.3-11.1)
[2021-09-01 03:40] LABS: Estimated Average Glucose 117 mg/dl; Hemoglobin A1C 5.7 %
[2021-09-01 03:48] LABS: INR 1.2; Prothrombin Time 13.8 Seconds (9.4-12.1)
[2021-09-01] MEDS ORDERED: Perflutren Lipid Microsphere 1.3 ML in 0.9 % Sodium Chloride 8.7 ML IVP PRN (03:58)
[2021-09-01 04:01] LABS: Complement C3 133 mg/dL (87-200)
[2021-09-01 04:02] LABS: BUN/Creatinine Ratio 22 (6-26); Blood Urea Nitrogen 17 mg/dL (8-23); C-Reactive Protein 47 mg/L (Less than 10); Calcium 8.9 mg/dL (8.6-10.3); Carbon Dioxide 22 mEq/L (23-29); Chloride 106 mEq/L (98-107); Chol/HDL Ratio 2.5 (0-4.9); Cholesterol 147 mg/dL (< 200); Glucose 137 mg/dL (70-105); HDL Cholesterol 59 mg/dL (40-59); LDL Cholesterol,Calculated 76 mg/dL (< 100); Magnesium 1.3 mg/dL (1.6-2.6); Osmolality,Calculated 290 (280-300); Potassium 3.8 mEq/L (3.5-5.1); Sodium 138 mEq/L (136-145); Triglycerides 61 mg/dL (< 150); eGFR For African Americans > 60 (> 60); eGFR For Non-African Americans > 60 (> 60)
[2021-09-01 05:43] LABS: Folate > 22.3 ng/mL (3.0-16.0); Vitamin B12 831 pg/mL (250-1100)
[2021-09-01 05:54] LABS: Albumin 3.4 g/dL (3.5-5.7); Bilirubin,Direct 0.1 mg/dL (0.0-0.2); Bilirubin,Indirect 0.4 mg/dL (0.0-1.0); Bilirubin,Total 0.5 mg/dL (0.3-1.0); Globulin 3.5 g/dL (2.4-3.5); Total Protein 6.9 g/dL (6.4-8.9)
[2021-09-01] MEDS ORDERED: Prochlorperazine 10 MG/2 ML VIAL IVP PRN (06:00)
[2021-09-01] MEDS: Aspirin Enteric Coated 81 MG Tablet PO SCH (08:19)
[2021-09-01] MEDS: *HR* LORazepam 0.5 MG TABLET PO SCH (08:19)
[2021-09-01] MEDS: Fluticasone Propionate Nasal 50 MCG/SPRAY BOTTLE NS SCH (08:21)
[2021-09-01] MEDS: Gabapentin 100 MG CAPSULE PO SCH ×3 (08:21→20:12)
[2021-09-01] MEDS: Cholecalciferol (D-3) 1,000 UNIT (25MCG) TABLET PO SCH (08:21)
[2021-09-01 10:51] LABS: Creatinine,Urine 115 mg/dL; Microalbumin,Urine > 1350 mg/L; Protein/Creatinine Ratio,Urine 3.31 mg/mg (0.00-0.20)
[2021-09-01] MEDS ORDERED: *HR* HYDROmorphone (PF) 1 MG/ML SYRINGE IVP PRN (14:41)
[2021-09-01] MEDS: *HR* Heparin 5,000 UNIT/ML VIAL SQ SCH (23:32)
[2021-09-02] MEDS: *HR* Heparin 5,000 UNIT/ML VIAL SQ SCH ×3 (04:47→20:37)
[2021-09-02] MEDS: carvediloL 6.25 MG TABLET PO SCH ×2 (07:29→16:05)
[2021-09-02] MEDS: Aspirin Enteric Coated 81 MG Tablet PO SCH (07:30)
[2021-09-02] MEDS: Piperacillin/Tazobactam 3.375 GM in 0.9 % Sodium Chloride Mini Bag 100 ML IVPB SCH ×3 (07:30→23:05)
[2021-09-02] MEDS: Cholecalciferol (D-3) 1,000 UNIT (25MCG) TABLET PO SCH (07:30)
[2021-09-02] MEDS: *HR* LORazepam 0.5 MG TABLET PO SCH (07:30)
[2021-09-02] MEDS: Gabapentin 100 MG CAPSULE PO SCH ×3 (07:30→20:38)
[2021-09-02] MEDS: Fluticasone Propionate Nasal 50 MCG/SPRAY BOTTLE NS SCH (07:31)
[2021-09-02] MEDS: niCARdipine 20 MG/200 ML MLS IVC SCH ×2 (07:41→13:24)
[2021-09-02] MEDS: *HR* HYDROcodone/Acet 10/325 mg TABLET PO PRN (07:43)
[2021-09-02] MEDS ORDERED: Furosemide 40 MG/4 ML VIAL IVP ONE (09:21)
[2021-09-02 10:01] LABS: Albumin/Globulin Ratio 1.2 (1.1-2.2); Bilirubin,Direct 0.1 mg/dL (0.0-0.2); Bilirubin,Indirect 0.3 mg/dL (0.0-1.0); Bilirubin,Total 0.4 mg/dL (0.3-1.0); Globulin 2.6 g/dL (2.4-3.5); Total Protein 5.6 g/dL (6.4-8.9)
[2021-09-02 11:31] LABS: Basophils % 0.2 %; Eosinophils # 0.1 K/mcL (0.0-0.6); Eosinophils % 0.4 %; Hematocrit 36.8 % (35.3-44.9); Immature Granulocytes % 0.6 % (0-4); Lymphocytes # 1.4 K/mcL (0.6-4.6); Lymphocytes % 6.4 %; Mean Corpuscular HGB Conc 31.5 g/dL (31.6-35.5); Mean Corpuscular Hemoglobin 30.3 pg (28.0-33.3); Mean Corpuscular Volume 96.1 fL (83.0-100.0); Mean Platelet Volume 9.9 fL (9.4-12.4); Monocytes # 1.6 K/mcL (0.0-1.3); Monocytes % 6.8 %; Neutrophils # 19.4 K/mcL (1.6-8.9); Platelet Count 312 K/mcL (140-400); Red Blood Count 3.83 M/mcL (3.82-4.97); Red Cell Distribution Width 15.9 % (11.5-14.5); Segmented Neutrophils % 85.6 %; White Blood Count 22.6 K/mcL (4.3-11.1)
[2021-09-02 11:34] LABS: Hemoglobin 11.6 g/dL (11.5-15.4)
[2021-09-02 12:05] LABS: Calcium 8.9 mg/dL (8.6-10.3); Potassium 3.7 mEq/L (3.5-5.1)
[2021-09-03] MEDS ORDERED: *HR* Labetalol 20 MG/4 ML SYRINGE IVP ONE (01:41)
[2021-09-03 03:54] LABS: Hematocrit 35.1 % (35.3-44.9); Mean Corpuscular HGB Conc 31.3 g/dL (31.6-35.5); Mean Corpuscular Hemoglobin 29.8 pg (28.0-33.3); Mean Corpuscular Volume 95.1 fL (83.0-100.0); Platelet Count 303 K/mcL (140-400); Red Blood Count 3.69 M/mcL (3.82-4.97); Red Cell Distribution Width 15.4 % (11.5-14.5); White Blood Count 20.5 K/mcL (4.3-11.1)
[2021-09-03 04:04] LABS: BUN/Creatinine Ratio 14 (6-26); Blood Urea Nitrogen 13 mg/dL (8-23); Calcium 8.6 mg/dL (8.6-10.3); Carbon Dioxide 27 mEq/L (23-29); Chloride 104 mEq/L (98-107); Glucose 120 mg/dL (70-105); Osmolality,Calculated 287 (280-300); Sodium 138 mEq/L (136-145); eGFR For African Americans > 60 (> 60); eGFR For Non-African Americans 56 (> 60)
[2021-09-03] MEDS: *HR* HYDROcodone/Acet 10/325 mg TABLET PO PRN ×2 (04:20→20:15)
[2021-09-03] MEDS ORDERED: Isovue-370 500 ML BOTTLE IVP ONE (07:41)
[2021-09-03] MEDS: carvediloL 6.25 MG TABLET PO SCH ×2 (08:38→15:26)
[2021-09-03] MEDS: Cholecalciferol (D-3) 1,000 UNIT (25MCG) TABLET PO SCH (08:38)
[2021-09-03] MEDS: Fluticasone Propionate Nasal 50 MCG/SPRAY BOTTLE NS SCH (08:39)
[2021-09-03] MEDS: Piperacillin/Tazobactam 3.375 GM in 0.9 % Sodium Chloride Mini Bag 100 ML IVPB SCH ×2 (08:39→15:26)
[2021-09-03] MEDS: *HR* LORazepam 0.5 MG TABLET PO SCH (08:39)
[2021-09-03] MEDS: Furosemide 40 MG TABLET PO SCH (08:39)
[2021-09-03] MEDS: Aspirin Enteric Coated 81 MG Tablet PO SCH (08:39)
[2021-09-03] MEDS: Gabapentin 100 MG CAPSULE PO SCH ×3 (08:39→20:04)
[2021-09-03] MEDS: Potassium Chloride Elixir 20 MEQ/15 ML UDC PO SCH ×2 (09:26→15:27)
[2021-09-03] MEDS: *HR* Heparin 5,000 UNIT/ML VIAL SQ SCH (20:03)
[2021-09-04] MEDS: Piperacillin/Tazobactam 3.375 GM in 0.9 % Sodium Chloride Mini Bag 100 ML IVPB SCH ×2 (01:11→08:58)
[2021-09-04 02:32] LABS: Basophils % 0.2 %; Eosinophils # 0.4 K/mcL (0.0-0.6); Eosinophils % 2.3 %; Hematocrit 32.2 % (35.3-44.9); Hemoglobin 10.1 g/dL (11.5-15.4); Immature Granulocytes % 0.7 % (0-4); Lymphocytes # 2.3 K/mcL (0.6-4.6); Lymphocytes % 13.7 %; Mean Corpuscular HGB Conc 31.4 g/dL (31.6-35.5); Mean Corpuscular Volume 95.5 fL (83.0-100.0); Mean Platelet Volume 9.8 fL (9.4-12.4); Monocytes # 1.8 K/mcL (0.0-1.3); Monocytes % 10.9 %; Neutrophils # 12.2 K/mcL (1.6-8.9); Platelet Count 292 K/mcL (140-400); Red Blood Count 3.37 M/mcL (3.82-4.97); Red Cell Distribution Width 15.5 % (11.5-14.5); Segmented Neutrophils % 72.2 %; White Blood Count 16.9 K/mcL (4.3-11.1)
[2021-09-04 02:52] LABS: Alanine Aminotransferase 13 Units/L (7-52); Albumin 2.8 g/dL (3.5-5.7); Albumin/Globulin Ratio 0.9 (1.1-2.2); Alkaline Phosphatase 72 Units/L (34-104); Aspartate Amino Transferase 12 Units/L (13-39); BUN/Creatinine Ratio 16 (6-26); Bilirubin,Total 0.5 mg/dL (0.3-1.0); Blood Urea Nitrogen 14 mg/dL (8-23); Calcium 8.9 mg/dL (8.6-10.3); Carbon Dioxide 25 mEq/L (23-29); Chloride 108 mEq/L (98-107); Glucose 114 mg/dL (70-105); Lipase 213 Units/L (11-82); Magnesium 1.6 mg/dL (1.6-2.6); Osmolality,Calculated 287 (280-300); Sodium 138 mEq/L (136-145); Total Protein 5.8 g/dL (6.4-8.9); eGFR For African Americans > 60 (> 60); eGFR For Non-African Americans > 60 (> 60)
[2021-09-04] MEDS: *HR* HYDROcodone/Acet 10/325 mg TABLET PO PRN (03:27)
[2021-09-04] MEDS: *HR* Heparin 5,000 UNIT/ML VIAL SQ SCH (05:27)
[2021-09-04] MEDS: Cholecalciferol (D-3) 1,000 UNIT (25MCG) TABLET PO SCH (08:58)
[2021-09-04] MEDS: Potassium Chloride Elixir 20 MEQ/15 ML UDC PO SCH (08:58)
[2021-09-04] MEDS: Furosemide 40 MG TABLET PO SCH (08:58)
[2021-09-04] MEDS: *HR* LORazepam 0.5 MG TABLET PO SCH (08:58)
[2021-09-04] MEDS: carvediloL 6.25 MG TABLET PO SCH (08:58)
[2021-09-04] MEDS: Gabapentin 100 MG CAPSULE PO SCH (08:58)
[2021-09-04] MEDS: Aspirin Enteric Coated 81 MG Tablet PO SCH (08:58)
[2021-09-04] MEDS: Fluticasone Propionate Nasal 50 MCG/SPRAY BOTTLE NS SCH (08:59)
[2021-09-04 10:27] LABS: ANA IgG by ELISA NONE DETECTED (None Detected)
[2021-09-04 10:29] LABS: Serine Protease-3 Antibody 0 AU/mL (0-19)
[2021-09-04 10:30] VITALS: BP 157/67; PULSE 95; TEMP 98; O2SAT 93
[2021-09-04 18:47] LABS: ANCA IFA Titer <1:20 (<1:20)
[2021-09-05 09:47] LABS: ANCA IFA Pattern NONE DETECTED (None Detected)
== END 2021-09-04 15:33 | disposition home health service (06) | DRG 438 ==
LOC: EMEROOARM 14:24 → 2NENU 14:24 → SUATTDRO 22:10
PROVIDERS: ADMIT Internal Medicine; ATTEND Internal Medicine